=== PATIENT | female | born 1945 | race Caucasian/White ===

== ENCOUNTER 2021-04-23 18:32 | Inpatient (IN) | payer MEDICARE, SELFPAY ==
[2021-04-23 18:05] VITALS: BP 133/60; PULSE 71; RESP 18; TEMP 37; O2SAT 100
[2021-04-23 20:00] VITALS: PULSE 77; O2SAT 100
--- NOTE | 2021-04-23 20:40 | PM.IMHP ---
H&P: HPI History of Present Illness Date/Time: 04/23/21 20:40 this is a 76-year-old female patient who has a past history of anemia. The patient states that she has a associate professor of history at [facility] that follows her. The patient has a history of peripheral vascular disease, internal carotid artery stenosis, morbid obesity, diastolic congestive heart failure, chronic hypoxic respiratory failure on home oxygen at 3 L per nasal cannula, severe pulmonary hypertension, coronary artery disease, diabetes type 2, atrial fibrillation on apixaban, and she had a TAVR last month. The patient came to the emergency room at [facility] with complaints of having pain all over. She stated that she has some lower abdominal pain. The patient was unable to go to [facility] if she had been placed on a waiting list. The patient had a CT of her abdomen and pelvis without contrast at home [facility] that read acute segmental colitis of the right he me colon. Colonoscopy follow-up is warranted to exclude potential for underlying malignancy. Mild interstitial edema with associated small bilateral pleural effusions. No acute airspace consolidation. Colonic diverticulitis. Anemia as evidenced by low attenuation of the intracardiac blood pole. 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 Postsurgical changes of cholecystectomy. Severe atheroma ptosis vascular calcifications. Vascular pain see not assessed on this non contrasted study. 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 On 04/20/2021 the ED physician spoke with the hospitalist at home or hospital and explained that they had no GI availability. They recommend transfer with GI availability. On that same day her guaiac stool was positive and it was dark. Patient was also found to have an elevated troponin most likely from her type 2 demand related to anemia. Patient stated that she had a total of 3 units of packed red blood cells while she was at [facility]. Her hemoglobin was 6.7. The patient had been on clear liquid diets. When the patient came to [facility] she was given a heart healthy diet and tolerated it well. The ED physician at home or hospital Dr. Lee stated that he called Dr. Balderrama who agreed to consult on the patient. According to the notes it looks like [facility] had been called and there were no beds available. The patient was transferred to our facility for GI consultation. The patient was placed in IMU due to her elevated troponins. Patient is being admitted to inpatient on the date of service of 04/23/2021 Chief Complaint: Abdominal pain Review of Systems Review of Systems: All systems reviewed & are unremarkable except as noted in HPI and below Constitutional: Constitutional: Reports as per HPI and Reports no additional constitutional complaints Eyes: Eyes: Reports as per HPI and Reports no additional eye complaints ENT: Reports system reviewed and no additional complaints, except as documented and Reports Normal hearing present Cardiovascular: Cardiovascular: Reports no additional cardiovascular complaints Respiratory: Respiratory: Reports no additional respiratory complaints and Reports no additional respiratory complaints Gastrointestinal: Gastrointestinal: Reports as per HPI and Reports no additional gastrointestinal complaints Musculoskeletal: Musculoskeletal: Reports no additional musculoskeletal complaints Integumentary/Breasts: Skin/Breast: Reports system reviewed and no additional complaints, except as docu and Reports as per HPI Neurologic: Reports system reviewed and no additional complaints, except as documented, Reports as per HPI and Reports Normal hearing present Psychiatric: Psychiatric: Reports no additional psychiatric complaints and Reports as per HPI Endocrine: Endocrine: Reports no additional endocrine complaints
[2021-04-23 20:41] VITALS: O2SAT 100
--- NOTE | 2021-04-23 20:49 | ECG_ITS ---
Measurements Intervals [place] Rate: 74 P: 75 [place]: 210 QRS: 26 QRSD: 99 T: 45 QT: 427 QTc: 477 Interpretive Statements SINUS RHYTHM WITH FIRST DEGREE AV BLOCK BASELINE ARTIFACT- I, II, III, AVR, AVL, AVF ABNORMAL ECG Electronically Signed On 04-24-2021 8:44:10 CDT by Gera Parsons D.O.
[2021-04-23 21:27] LABS: Hematocrit 36.6 % (37.0-47.0); Hemoglobin 11.1 g/dL (12.0-15.0)
[2021-04-23 21:37] LABS: Lactic Acid Reflex 1.4 mmol/L (0.7-2.1)
[2021-04-23 21:38] LABS: Glucose Point of Care 252 mg/dl (65-105)
[2021-04-23 21:40] LABS: Magnesium 1.7 mg/dL (1.6-2.3)
[2021-04-23 21:41] LABS: Anion Gap 7 mmol/L (8-16); Blood Urea Nitrogen 10 mg/dL (7-17); Calcium 9.5 mg/dL (8.4-10.2); Carbon Dioxide 35 mmol/L (22-30); Chloride 95 mmol/L (98-107); Estimated Glomerular Filt Rate 54; Glucose 244 mg/dL (65-110); Potassium 4.7 mmol/L (3.4-5.0); Sodium 137 mmol/L (137-145)
[2021-04-23 21:48] LABS: Hemoglobin A1C 5.7 % (<5.7)
[2021-04-23 21:57] LABS: Troponin I 0.157 ng/mL (0.000-0.034)
[2021-04-23 22:00] VITALS: PULSE 79
[2021-04-23 22:31] VITALS: BMI 37.3
[2021-04-23 23:08] LABS: IFOB Positive Control Positive; Immunochemical Fecal Occult Bl Positive (N)
[2021-04-24] VITALS (13 sets, daily range): BP systolic 106–165; BP diastolic 48–68; PULSE 70–94; RESP 16–20; TEMP 36.2–37.1; O2SAT 88–100
[2021-04-24] MEDS: traZODone HCL 50 MG TABLET 150 MG PO ×2 (00:03→22:59)
[2021-04-24] MEDS: rOPINIRole HCL 1 MG TABLET PO ×2 (00:03→23:00)
[2021-04-24] MEDS: PANTOPRAZOLE SODIUM IV 40 MG VIAL IV PUSH ×3 (00:03→22:58)
[2021-04-24] MEDS: ALPRAZolam (*CRX) 0.25 MG TABLET PO (00:03)
[2021-04-24] MEDS: ZOLPIDEM TARTRATE (*CRX) 5 MG TABLET PO ×2 (00:03→23:14)
[2021-04-24 01:34] LABS: Add Urine Microscopic? YES; Appearance Urine Cloudy (Clear); Bacteria Urine Trace /hpf; Bilirubin Urine Negative (Negative); Blood Urine Negative (Negative); Color Urine Amber (Yellow); Glucose Urine UA Negative (Negative); Ketones Urine Negative (Negative); Leukocyte Esterase Ur Negative LEU/UL (NEGATIVE); Mucus Urine Rare /lpf; Nitrate Urine Negative (Negative); Protein Urine 2+ mg/dL (Negative); Specific Grav Ur 1.021 (1.001-1.035); Squamous Epithelial Cell Urine Moderate /hpf (Few)
[2021-04-24] MEDS: oxyCODONE/ACETAMINOPHEN (*CRX) 5-325 MG TABLET 1 TABLET PO (01:51)
[2021-04-24 01:57] LABS: Troponin I 0.133 ng/mL (0.000-0.034)
--- NOTE | 2021-04-24 02:06 | ADMIMU ---
This patient, Di Driver, was admitted to IMU status, and placed in IMU Room 200-01 04/23/21 at 1830. Patient oriented to hospital policies and general routines including ID bracelet, bed and alarms, visiting hours, pain management, procedures, bathroom and other care routines, personal items, smoking policy, room service/diet, and visiting hours. Information on how to activate the Rapid Response Team has been discussed. Patient/Family are encouraged to report perceived risks to care and to ask questions if they do not understand what they are told or what they should do.
[2021-04-24 03:30] LABS: Hematocrit 30.9 % (37.0-47.0); Hemoglobin 9.6 g/dL (12.0-15.0)
[2021-04-24 03:41] LABS: Anion Gap 3 mmol/L (8-16); Blood Urea Nitrogen 13 mg/dL (7-17); Calcium 8.5 mg/dL (8.4-10.2); Carbon Dioxide 33 mmol/L (22-30); Chloride 97 mmol/L (98-107); Estimated CRCL calculation 52 ml/min; Estimated Glomerular Filt Rate > 60; Glucose 150 mg/dL (65-110); Sodium 133 mmol/L (137-145)
[2021-04-24 04:01] LABS: Troponin I 0.131 ng/mL (0.000-0.034)
[2021-04-24] MEDS: amLODIPine BESYLATE 5 MG TABLET PO (08:20)
[2021-04-24] MEDS: FERROUS SULFATE 324 MG TABLET PO (08:21)
[2021-04-24] MEDS: FUROSEMIDE 40 MG TABLET PO (08:21)
[2021-04-24] MEDS: hydrALAZINE HCL 25 MG TABLET PO ×3 (08:21→16:07)
[2021-04-24] MEDS: SENNA/DOCUSATE SODIUM TABLET 2 TAB PO ×2 (08:21→16:07)
[2021-04-24] MEDS: allopurinoL 100 MG TABLET PO ×2 (08:21→16:07)
[2021-04-24] MEDS: DULoxetine HCL 30 MG CAPSULE.DR PO (08:21)
[2021-04-24] MEDS: AMIODARONE HCL 200 MG TABLET PO (08:21)
[2021-04-24] MEDS: GABAPENTIN 300 MG CAPSULE PO (08:21)
[2021-04-24 09:14] LABS: Hematocrit 30.8 % (37.0-47.0); Hemoglobin 9.5 g/dL (12.0-15.0)
[2021-04-24 09:16] LABS: Glucose Point of Care 126 mg/dl (65-105)
--- NOTE | 2021-04-24 10:43 | PM.IMPN ---
Progress Note: A&P Assessment and Plan (1) GI bleed: Code(s): K92.2 - Gastrointestinal hemorrhage, unspecified Status: Chronic Assessment and Plan: Patient is status post blood transfusion Stable Continue to monitor (2) Hypertension: Code(s): I10 - Essential (primary) hypertension Status: Chronic Assessment and Plan: Continue to monitor (3) Hyperlipidemia: Code(s): E78.5 - Hyperlipidemia, unspecified Status: Chronic Assessment and Plan: Continue with home medication. (4) DM2 (diabetes mellitus, type 2): Code(s): E11.9 - Type 2 diabetes mellitus without complications Status: Chronic Assessment and Plan: Continue to monitor Insulin sliding scale as needed (5) Depression: Code(s): F32.A - Depression, unspecified Status: Chronic Assessment and Plan: Continue with home medication. (6) Fibromyalgia: Code(s): M79.7 - Fibromyalgia Status: Chronic Assessment and Plan: Continue fentanyl patch (7) CAD (coronary artery disease): Code(s): I25.10 - Atherosclerotic heart disease of [place] coronary artery without angina pectoris Status: Chronic Assessment and Plan: Chest pain-free Continue to monitor (8) Severe aortic valve stenosis: Code(s): I35.0 - Nonrheumatic aortic (valve) stenosis Status: Chronic Assessment and Plan: Patient had a recent TAVR Continue to monitor (9) COPD (chronic obstructive pulmonary disease): Code(s): J44.9 - Chronic obstructive pulmonary disease, unspecified Status: Chronic Assessment and Plan: Continue with home medications. Not actively wheezing (10) Congestive heart failure: Code(s): I50.9 - Heart failure, unspecified Status: Chronic Assessment and Plan: Continue with home medications. Appears to be euvolemic Continue to monitor intake and output (11) Atrial fibrillation: Code(s): I48.91 - Unspecified atrial fibrillation Status: Chronic Assessment and Plan: Rate controlled (12) Anxiety: Code(s): F41.9 - Anxiety disorder, unspecified Status: Chronic Assessment and Plan: Continue with home medications. (13) Elevated troponin: Code(s): R77.8 - Other specified abnormalities of plasma proteins Status: Acute Assessment and Plan: Continue to monitor Will trend Subjective Date/time seen: 04/24/21 10:43 Review of Systems Review of Systems: All systems reviewed & are unremarkable except as noted in HPI and below Constitutional: Constitutional: Reports as per HPI and Reports no additional constitutional complaints Eyes: Eyes: Reports as per HPI and Reports no additional eye complaints ENT: Reports system reviewed and no additional complaints, except as documented Cardiovascular: Cardiovascular: Reports no additional cardiovascular complaints Respiratory: Respiratory: Reports no additional respiratory complaints and Reports no additional respiratory complaints Gastrointestinal: Gastrointestinal: Reports as per HPI and Reports no additional gastrointestinal complaints Musculoskeletal: Musculoskeletal: Reports no additional musculoskeletal complaints Integumentary/Breasts: Skin/Breast: Reports system reviewed and no additional complaints, except as docu and Reports as per HPI Neurologic: Reports system reviewed and no additional complaints, except as documented, Reports as per HPI and Reports Sensory deficit (Neuro) (Left hand neuropathy, chronic) Psychiatric: Psychiatric: Reports no additional psychiatric complaints and Reports as per HPI Endocrine: Endocrine: Reports no additional endocrine complaints Hematologic/Lymphatic: Hematologic/Lymphatic: Reports no additional hematologic/lymphatic complaints Allergic/Immunologic: Allergic/Immunologic: Reports no additional allergic/immunologic complaints Exam Narrative: Patient is l
[2021-04-24 14:58] LABS: Hematocrit 31.1 % (37.0-47.0); Hemoglobin 9.8 g/dL (12.0-15.0)
--- NOTE | 2021-04-24 15:11 | WPDGICN ---
Assessment and Plan Assessment and plan (1) GI bleed: Code(s): K92.2 - Gastrointestinal hemorrhage, unspecified Status: Chronic Assessment and Plan: she has chronic anemia evaluated for many years by GI and also hematology (no records)- will try to obtain recent scopes and notes had occult blood in stools but no signs of overt gib, she is comfortable now protonix for now and trend h/h outside CT scan ? colitis but exam is benign and no diarrhea, patient also says that had colonoscopy not long ago eliquis probably also contributing with anemia (2) Occult blood in stools: Code(s): R19.5 - Other fecal abnormalities Status: Acute (3) Acute on chronic blood loss anemia: Code(s): D62 - Acute posthemorrhagic anemia Status: Acute Assessment and Plan: monitor for signs of bleeding she says that in the past required iv iron and blood transfusion will need follow-up with her distribution dispatcher (4) Severe aortic valve stenosis: Code(s): I35.0 - Nonrheumatic aortic (valve) stenosis Status: Chronic Assessment and Plan: s/p tavr 1 month ago (5) 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 HPI: Di Driver is a 76 year old female with multiple medical problems with history of peripheral vascular disease, internal carotid artery stenosis, morbid obesity, diastolic congestive heart failure, chronic hypoxic respiratory failure on home oxygen at 3 L per nasal cannula, severe pulmonary hypertension, coronary artery disease, diabetes type 2, atrial fibrillation on apixaban, and TAVR last month at [facility]. She says that also has chronic anemia for over 20 years, work up done at [facility] and [facility] with scopes multiple times and even SB capsule endoscopy with no definitive diagnosis, also seeing distribution dispatcher at [facility] and had BM biopsy per patient. She went to the emergency room at [facility] with mild lower abdominal pain but also was feeling more tired than usual and she has been waiting for bed to go to [facility] for almost [address]. [address] of her abdomen and pelvis read as possible acute segmental colitis of the right colon (patient says that most recent scopes maybe about 6 months ago or so). Further ER evaluation at [facility] showed positive occult blood and also found to be more anemic then received total of 3 units of packed red blood cells (hemoglobin was 6.7). She is hemodynamically stable and hb 9. Also had mild elevated troponin. Review of Systems Constitutional: Constitutional: Denies chills Eyes: Eyes: Denies blurry vision ENT: Reports Normal hearing present Cardiovascular: Cardiovascular: Denies chest pain Respiratory: Respiratory: Denies cough Gastrointestinal: Gastrointestinal: Reports abdominal pain and Denies melena Genitourinary: Genitourinary: Denies hematuria Musculoskeletal: Musculoskeletal: Denies neck pain Integumentary/Breasts: Skin/Breast: Denies dry skin Neurologic: Denies headache(s) Psychiatric: Psychiatric: Reports no additional psychiatric complaints PMFSH Past Medical History Medical History (Updated 04/24/21 @ 15:22 by Graeme Clark MD) Abdominal pain Acute on chronic blood loss anemia Anemia Anxiety Arthritis Atrial fibrillati
--- NOTE | 2021-04-24 15:43 | PC.NURSE ---
This patient, Di Driver, was transferred to [facility] on 04/24/21 at 1534. Personal belongings sent with patient. Report given to TAHIR Chaudhari. Appropriate documentation sent with patient.
[2021-04-24] MEDS: INSULIN ASPART (*BKC) 100 UNITS/ML SUB-Q (16:07)
[2021-04-24 16:32] LABS: Glucose Point of Care 178 mg/dl (65-105)
[2021-04-24 18:39] LABS: Glucose Point of Care 258 mg/dl (65-105)
--- NOTE | 2021-04-24 19:03 | PCAUD ---
consent signed for release for recorders from [facility] and [facility], for recent GI note and scopes.
[2021-04-25] VITALS (7 sets, daily range): BP systolic 135–148; BP diastolic 45–91; PULSE 75–86; RESP 18; TEMP 36.5–36.8; O2SAT 97–100
[2021-04-25 01:44] LABS: Glucose Point of Care 163 mg/dl (65-105)
[2021-04-25] MEDS: oxyCODONE/ACETAMINOPHEN (*CRX) 5-325 MG TABLET 1 TABLET PO (04:49)
[2021-04-25 06:35] LABS: Hematocrit 30.8 % (37.0-47.0); Hemoglobin 9.5 g/dL (12.0-15.0); Mean Corpuscular HGB Conc 30.8 g/dl (32-36); Mean Corpuscular Volume 90.9 fl (80-100); Mean Platelet Volume 9.9 fl (7.4-10.4); Platelet Count Result 242 k/mm3 (150-375); Red Blood Count 3.39 M/mm3 (4.2-5.4); Red Cell Distribution Width 15.9 % (11.5-14.5)
[2021-04-25 06:41] LABS: Alanine Aminotransferase 9 U/L (4-35); Alkaline Phosphatase 99 U/L (38-126); Anion Gap 7 mmol/L (8-16); Aspartate Amino Transferase 16 U/L (14-36); Bilirubin,Total 0.4 mg/dL (0.2-1.3); Blood Urea Nitrogen 17 mg/dL (7-17); Calcium 8.5 mg/dL (8.4-10.2); Carbon Dioxide 34 mmol/L (22-30); Chloride 97 mmol/L (98-107); Estimated CRCL calculation 40 ml/min; Estimated Glomerular Filt Rate 44; Glucose 173 mg/dL (65-110); Potassium 4.2 mmol/L (3.4-5.0); Sodium 138 mmol/L (137-145)
[2021-04-25 08:11] LABS: Glucose Point of Care 137 mg/dl (65-105)
[2021-04-25] MEDS: SENNA/DOCUSATE SODIUM TABLET 2 TAB PO ×2 (08:16→16:28)
[2021-04-25] MEDS: allopurinoL 100 MG TABLET PO ×2 (08:16→16:28)
[2021-04-25] MEDS: FUROSEMIDE 40 MG TABLET PO (08:16)
[2021-04-25] MEDS: DULoxetine HCL 30 MG CAPSULE.DR PO (08:16)
[2021-04-25] MEDS: FERROUS SULFATE 324 MG TABLET PO (08:16)
[2021-04-25] MEDS: GABAPENTIN 300 MG CAPSULE PO ×2 (08:16→20:54)
[2021-04-25] MEDS: AMIODARONE HCL 200 MG TABLET PO (08:16)
[2021-04-25] MEDS: PANTOPRAZOLE SODIUM IV 40 MG VIAL IV PUSH ×2 (08:17→20:54)
[2021-04-25] MEDS: amLODIPine BESYLATE 5 MG TABLET PO (08:17)
[2021-04-25] MEDS: hydrALAZINE HCL 25 MG TABLET PO ×3 (08:17→16:28)
--- NOTE | 2021-04-25 08:56 | WPDGIPROGNO ---
Progress Note: A&P Assessment and Plan (1) Abdominal pain: Code(s): R10.9 - Unspecified abdominal pain Status: Acute Assessment and Plan: stable, reviewed CT scan from other hospital- right colitis and recommending assess with colonoscopy to exclude malignancy she is willing to have colonoscopy tomorrow (2) Abnormal CT scan, colon: Code(s): R93.3 - Abnormal findings on diagnostic imaging of other parts of digestive tract Status: Acute Assessment and Plan: will assess with colonoscopy (3) Acute on chronic blood loss anemia: Code(s): D62 - Acute posthemorrhagic anemia Status: Acute Assessment and Plan: long standing anemia with previous scopes and hematology evaluation her blood thinner on hold had + FBOT but no overt gib however received blood transfusion again will do egd and colonoscopy tomorrow (4) Occult blood in stools: Code(s): R19.5 - Other fecal abnormalities Status: Acute (5) 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: Code(s): Z92.29 - Personal history of other drug therapy Status: Acute (6) DM2 (diabetes mellitus, type 2): Code(s): E11.9 - Type 2 diabetes mellitus without complications Status: Chronic (7) CAD (coronary artery disease): Code(s): I25.10 - Atherosclerotic heart disease of [place] coronary artery without angina pectoris Status: Chronic Subjective Date/time seen: 04/25/21 08:56 Interval history: some abdominal discomfort, no signs of gib Review of Systems Review of Systems: All systems reviewed & are unremarkable except as noted in HPI and below Exam Const: General: comfortable and no acute distress HENMT: General nose exam: Normal nares present Eyes: Sclera: sclerae normal Neck: Neck: supple Resp: Auscultation: clear to auscultation bilaterally Cardio: Rate: regular rate GI: GI Palp: Yes Soft to palpation, Yes Tenderness to palpation present (GI) (mild ttp in right upper abdomen, no rebound) and No Guarding due to palpation present (GI) Auscultation: normal bowel sounds Skin: General skin exam: no rashes or lesions noted Neuro: Speech: normal speech Extrem: General: normal to inspection Psych: Mental Status: mental status grossly normal Objective Data Vital Signs Vital Signs: Vital Signs - 24 hr 04/24/21 10:00 04/24/21 12:00 04/24/21 20:00 Temperature 97.6 F Pulse Rate 74 76 83 Respiratory Rate 16 18 Blood Pressure 106/48 L Pulse Oximetry 99 97 04/24/21 22:00 04/25/21 06:00 04/25/21 08:16 Temperature 97.9 F 98.3 F Pulse Rate 83 76 76 Respiratory Rate 18 18 Blood Pressure 124/57 L 148/45 H Pulse Oximetry 97 97 Intake/Output Intake/Output: Intake & Output 04/22/21 04/23/21 04/24/21 04/25/21 23:59 23:59 23:59 23:59 Intake Total 902 550 Output Total 1050 1050 Balance -148 -500 Meds/Results Medications: Active Medications Generic Name Dose Route Start Last Admin Trade Name Freq PRN Reason Stop Dose Admin Albuterol 2.5 mg 04/23/21 22:20 Albuterol Sulfate Neb 2.5 Mg/3 Ml Inh INHALATION DAILY PRN Shortness Of Breath Allopurinol 100 mg 04/24/21 08:00 04/25/21 08:16 Allopurinol 100 Mg Tablet PO 100 mg BIDWM BAYLEE Administration Alprazolam 0.25 mg 04/23/21 22:20 04/24/21 00:03 Alprazolam (*Crx) 0.25 Mg Tablet PO 0.25 mg BID PRN Administration Anxiety Amiodarone HCl 200 mg 04/24/21 08:00 04/25/21 08:16 Amiodarone Hcl 200 Mg Tablet PO 200 mg DAILY@0800 BAYLEE Administration Amlodipine Besylate 5 mg 04/24/21 09:00 04/25/21 08:17 Amlodipine Besylate 5 Mg Tablet PO 5 mg DAILY BAYLEE Administration Bisacodyl 20 mg 04/25/21 17:00 Bisacodyl 5 Mg Tablet Ec PO 04/25/21 17:01 ONCE ONE Dextrose 12.5 gm 04/23/21 20:39 Dextrose 50% 25 Gm/50 Ml Syringe IV PUSH PRN PRN Hypoglycemia Protocol Duloxetine HCl 30 mg 04/24/21 09:00 04/25/21 08:16
--- NOTE | 2021-04-25 09:49 | PCAUD ---
Titrating pt to Ra this shift, stable at this time. Called pharmacy, pt stated takes gabapentin at [facility], pharmacist changed to [facility] per pt request.
--- NOTE | 2021-04-25 10:08 | PCAUD ---
consent signed for colonscopy and upper endoscopy with MD Clark this morning, procedure scheduled for Monday per pt report.
[2021-04-25 11:41] LABS: Glucose Point of Care 209 mg/dl (65-105)
[2021-04-25] MEDS: INSULIN ASPART (*BKC) 100 UNITS/ML SUB-Q (12:32)
--- NOTE | 2021-04-25 13:09 | PCAUD ---
Pt transfers from IMU, report received from Audra HARO, assessment complete, pt has dentures full set.
[2021-04-25 16:27] LABS: Glucose Point of Care 183 mg/dl (65-105)
[2021-04-25] MEDS: polyethylene glycoL 3350 238 GM BOTTLE PO (16:27)
[2021-04-25] MEDS: BISACODYL 5 MG TABLET EC 20 MG PO (16:30)
--- NOTE | 2021-04-25 18:50 | PCAUD ---
This patient, Di Driver, was transfered to [facility] Room 321-01 04/24/21 at 1404. Patient/family oriented to hospital policies and general routines including ID bracelet, bed and alarms, visiting hours, pain management, procedures, bathroom and other care routines, personal items, smoking policy, room service/diet, and visiting hours. Information on how to activate the Rapid Response Team has been discussed. Patient/Family are encouraged to report perceived risks to care and to ask questions if they do not understand what they are told or what they should do.
[2021-04-25] MEDS: ZOLPIDEM TARTRATE (*CRX) 5 MG TABLET PO (20:54)
[2021-04-25] MEDS: rOPINIRole HCL 1 MG TABLET PO (20:54)
[2021-04-25] MEDS: traZODone HCL 50 MG TABLET 150 MG PO (20:54)
[2021-04-26] VITALS (8 sets, daily range): BP systolic 98–139; BP diastolic 48–65; PULSE 65–80; RESP 13–20; TEMP 36.5–37.4; O2SAT 95–100; BMI 32.0
[2021-04-26] MEDS: fentaNYL (*CRX) 75 MCG PATCH TRANSDERM (01:43)
[2021-04-26 02:02] LABS: Glucose Point of Care 211 mg/dl (65-105)
[2021-04-26] MEDS: MAGNESIUM CITRATE 300 ML BTL PO (05:08)
[2021-04-26 08:20] LABS: Glucose Point of Care 128 mg/dl (65-105)
[2021-04-26] MEDS: PANTOPRAZOLE SODIUM IV 40 MG VIAL IV PUSH (09:12)
[2021-04-26 12:01] LABS: Glucose Point of Care 139 mg/dl (65-105)
--- NOTE | 2021-04-26 13:39 | PM.IMPN ---
Progress Note: A&P Assessment and Plan (1) GI bleed: Code(s): K92.2 - Gastrointestinal hemorrhage, unspecified Status: Chronic Assessment and Plan: Status post colonoscopy Findings consistent with colitis Follow GI recommendations. Patient is status post blood transfusion Stable Continue to monitor (2) Hypertension: Code(s): I10 - Essential (primary) hypertension Status: Chronic Assessment and Plan: Continue to monitor (3) Hyperlipidemia: Code(s): E78.5 - Hyperlipidemia, unspecified Status: Chronic Assessment and Plan: Continue with home medication. (4) DM2 (diabetes mellitus, type 2): Code(s): E11.9 - Type 2 diabetes mellitus without complications Status: Chronic Assessment and Plan: Continue to monitor Insulin sliding scale as needed (5) Depression: Code(s): F32.A - Depression, unspecified Status: Chronic Assessment and Plan: Continue with home medication. (6) Fibromyalgia: Code(s): M79.7 - Fibromyalgia Status: Chronic Assessment and Plan: Continue fentanyl patch (7) CAD (coronary artery disease): Code(s): I25.10 - Atherosclerotic heart disease of [place] coronary artery without angina pectoris Status: Chronic Assessment and Plan: Chest pain-free Continue to monitor (8) Severe aortic valve stenosis: Code(s): I35.0 - Nonrheumatic aortic (valve) stenosis Status: Chronic Assessment and Plan: Patient had a recent TAVR Continue to monitor (9) COPD (chronic obstructive pulmonary disease): Code(s): J44.9 - Chronic obstructive pulmonary disease, unspecified Status: Chronic Assessment and Plan: Continue with home medications. Not actively wheezing (10) Congestive heart failure: Code(s): I50.9 - Heart failure, unspecified Status: Chronic Assessment and Plan: Continue with home medications. Appears to be euvolemic Continue to monitor intake and output (11) Atrial fibrillation: Code(s): I48.91 - Unspecified atrial fibrillation Status: Chronic Assessment and Plan: Rate controlled (12) Anxiety: Code(s): F41.9 - Anxiety disorder, unspecified Status: Chronic Assessment and Plan: Continue with home medications. (13) Elevated troponin: Code(s): R77.8 - Other specified abnormalities of plasma proteins Status: Acute Assessment and Plan: Continue to monitor Will trend Subjective Date/time seen: 10/25/21 13:39 Interval history: some abdominal discomfort, no signs of gib Review of Systems Review of Systems: All systems reviewed & are unremarkable except as noted in HPI and below Constitutional: Constitutional: Reports as per HPI and Reports no additional constitutional complaints Eyes: Eyes: Reports as per HPI and Reports no additional eye complaints ENT: Reports system reviewed and no additional complaints, except as documented Cardiovascular: Cardiovascular: Reports no additional cardiovascular complaints Respiratory: Respiratory: Reports no additional respiratory complaints and Reports no additional respiratory complaints Gastrointestinal: Gastrointestinal: Reports as per HPI and Reports no additional gastrointestinal complaints Musculoskeletal: Musculoskeletal: Reports no additional musculoskeletal complaints Integumentary/Breasts: Skin/Breast: Reports system reviewed and no additional complaints, except as docu and Reports as per HPI Neurologic: Reports system reviewed and no additional complaints, except as documented, Reports as per HPI and Reports Sensory deficit (Neuro) (Left hand neuropathy, chronic) Psychiatric: Psychiatric: Reports no additional psychiatric complaints and Reports as per HPI Endocrine: Endocrine: Reports no additional endocrine complaints Hematologic/Lymphatic: Hematologic/Lymphatic: Reports no additional hematologic/lymph
[2021-04-26] MEDS: GENTAMICIN 80MG/SOD CHL 50 ML 80 MG/50 ML BAG 100 MG IVPB (14:35)
[2021-04-26] MEDS: LACTATED RINGERS 1,000 ML 150 ML IV CONT (14:35)
--- NOTE | 2021-04-26 14:49 | WPDANESEPPF ---
Anes - Initial Pre Proc Eval Procedure: Operation Date: 04/26/21 15:00 Proposed Procedures p Esophagogastroduodenoscopy & Colonoscopy - Graeme Clark MD Date/Time: 04/26/21 14:49 Surgeon: Chani Reeder MD Pre Op Diagnosis: GI B Patient Data Age: 76 Gender: F Height: 1.63 m Weight: 84.6 kg Last Vital Signs Temp 97.7 F 04/26/21 14:36 Pulse 66 04/26/21 14:36 Resp 16 04/26/21 14:36 BP 139/57 L 04/26/21 14:36 Pulse Ox 95 04/26/21 09:23 Allergies Allergy/AdvReac Type Severity Reaction Status Date / Time cephalexin [From Keflex] Allergy Itching Verified 04/23/21 20:37 sertraline [From Zoloft] Allergy Itching Verified 04/23/21 20:37 Home Medications Medication Instructions Recorded Confirmed Type albuterol sulfate 2.5 mg CONTINUOUS NEBULIZATION 04/23/21 04/23/21 History DAILY PRN allopurinol 100 mg PO BID 04/23/21 04/23/21 History alprazolam 0.25 mg PO BID PRN 04/23/21 04/23/21 History amiodarone 200 mg PO DAILY 04/23/21 04/23/21 History amlodipine 5 mg PO DAILY 04/23/21 04/23/21 History apixaban [Eliquis] 5 mg PO BID 04/23/21 04/23/21 History blood-glucose sensor [Dexcom G6 04/23/21 04/23/21 History Sensor] blood-glucose transmitter [Dexcom 04/23/21 04/23/21 History G6 Transmitter] duloxetine 30 mg PO DAILY 04/23/21 04/23/21 History famotidine 40 mg PO BID 04/23/21 04/23/21 History fentanyl 1 patch TRANSDERMAL Q3D 04/23/21 04/23/21 History ferrous sulfate [FeroSul] 325 mg PO DAILY 04/23/21 04/23/21 History furosemide 40 mg PO DAILY 04/23/21 04/23/21 History gabapentin 300 mg PO DAILY 04/23/21 04/23/21 History hydralazine 25 mg PO TID 04/23/21 04/23/21 History insulin aspart U-100 [Novolog 60 unit SUBCUT USEASDIRECTD 04/23/21 04/23/21 History U-100 Insulin aspart] naloxone [Narcan] 4 mg INTRANASAL PRN PRN 04/23/21 04/23/21 History oxycodone-acetaminophen 1 tablet PO Q4H PRN 04/23/21 04/23/21 History ropinirole 1 mg PO HS 04/23/21 04/23/21 History sennosides-docusate sodium 2 tablet PO BID 04/23/21 04/23/21 History [Senna-S] trazodone 150 mg PO HS 04/23/21 04/23/21 History zolpidem 5 mg PO HS 04/23/21 04/23/21 History Laboratory Tests 04/25/21 04/25/21 04/26/21 16:22 21:02 08:08 POC Capillary Glucose 183 mg/dl H mg/dl 211 mg/dl H mg/dl 128 mg/dl H mg/dl (65-105) (65-105) (65-105) 04/26/21 11:46 POC Capillary Glucose 139 mg/dl H mg/dl (65-105) Patient hx anesthesia problems: none Family hx anesthesia problems: none Results Review: All pre-operative results and documents have been reviewed as part of the pre-operative evaluation. 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 Hyperlipidemia Hypertension Myocardial infarction Occult blood in stools Pulmonary emboli Severe aortic valve stenosis Surgical History Surgical History (Updated 04/23/21 @ 21:02 by Crissy Cormier NP) H/O bilateral cataract extraction H/O colonoscopy with polypectomy H/O heart artery stent 2006 H/O total hip arthroplasty H/O: hysterectomy History of back surgery History of removal of Port-a-Cath History of surgery on arm History of tonsillectomy Hx of cholecystectomy S/P rotator cuff repair Family History Family History (Updated 04/24/21 @ 00:45 by Elli Mauircio RN) Father War injury d/t direct or indirect pressure or air blast of explosion Causing during World War 2 Mother Pulmonar
[2021-04-26 14:50] LABS: Glucose Point of Care 147 mg/dl (65-105)
[2021-04-26] MEDS: AMPICILLIN 2 GM/NS 100 ML 2 GM/100 ML BAG IVPB (15:08)
--- NOTE | 2021-04-26 16:48 | SUR.OPER ---
EGD ENDED AND COLONOSCOPY STARTED 1644
[2021-04-26 17:59] LABS: Glucose Point of Care 127 mg/dl (65-105)
[2021-04-26] MEDS: SENNA/DOCUSATE SODIUM TABLET 2 TAB PO (18:05)
[2021-04-26] MEDS: hydrALAZINE HCL 25 MG TABLET PO (18:05)
[2021-04-26] MEDS: allopurinoL 100 MG TABLET PO (18:05)
[2021-04-26] MEDS: ZOLPIDEM TARTRATE (*CRX) 5 MG TABLET PO (21:18)
[2021-04-26] MEDS: GABAPENTIN 300 MG CAPSULE PO (21:18)
[2021-04-26] MEDS: traZODone HCL 50 MG TABLET 150 MG PO (21:18)
[2021-04-26] MEDS: rOPINIRole HCL 1 MG TABLET PO (21:18)
[2021-04-26 21:25] LABS: Glucose Point of Care 296 mg/dl (65-105)
[2021-04-27 07:50] LABS: Glucose Point of Care 144 mg/dl (65-105)
[2021-04-27 08:33] VITALS: PULSE 73
[2021-04-27] MEDS: AMIODARONE HCL 200 MG TABLET PO (08:33)
[2021-04-27] MEDS: hydrALAZINE HCL 25 MG TABLET PO ×3 (08:33→18:38)
[2021-04-27] MEDS: SENNA/DOCUSATE SODIUM TABLET 2 TAB PO (08:34)
[2021-04-27] MEDS: amLODIPine BESYLATE 5 MG TABLET PO (08:34)
[2021-04-27] MEDS: FUROSEMIDE 40 MG TABLET PO (08:34)
[2021-04-27] MEDS: allopurinoL 100 MG TABLET PO ×2 (08:35→18:37)
[2021-04-27] MEDS: DULoxetine HCL 30 MG CAPSULE.DR PO (08:35)
[2021-04-27] MEDS: FERROUS SULFATE 324 MG TABLET PO (08:35)
[2021-04-27] MEDS: PANTOPRAZOLE 40 MG TABLET PO (08:35)
--- NOTE | 2021-04-27 10:10 | PM.IMPN ---
Progress Note: A&P Assessment and Plan (1) GI bleed: Code(s): K92.2 - Gastrointestinal hemorrhage, unspecified Status: Chronic Assessment and Plan: Status post colonoscopy Findings consistent with colitis Follow GI recommendations. Patient is status post blood transfusion Stable Continue to monitor (2) Hypertension: Code(s): I10 - Essential (primary) hypertension Status: Chronic Assessment and Plan: Continue to monitor (3) Hyperlipidemia: Code(s): E78.5 - Hyperlipidemia, unspecified Status: Chronic Assessment and Plan: Continue with home medication. (4) DM2 (diabetes mellitus, type 2): Code(s): E11.9 - Type 2 diabetes mellitus without complications Status: Chronic Assessment and Plan: Continue to monitor Insulin sliding scale as needed (5) Depression: Code(s): F32.A - Depression, unspecified Status: Chronic Assessment and Plan: Continue with home medication. (6) Fibromyalgia: Code(s): M79.7 - Fibromyalgia Status: Chronic Assessment and Plan: Continue fentanyl patch (7) CAD (coronary artery disease): Code(s): I25.10 - Atherosclerotic heart disease of [place] coronary artery without angina pectoris Status: Chronic Assessment and Plan: Chest pain-free Continue to monitor (8) Severe aortic valve stenosis: Code(s): I35.0 - Nonrheumatic aortic (valve) stenosis Status: Chronic Assessment and Plan: Patient had a recent TAVR Continue to monitor (9) COPD (chronic obstructive pulmonary disease): Code(s): J44.9 - Chronic obstructive pulmonary disease, unspecified Status: Chronic Assessment and Plan: Continue with home medications. Not actively wheezing (10) Congestive heart failure: Code(s): I50.9 - Heart failure, unspecified Status: Chronic Assessment and Plan: Continue with home medications. Appears to be euvolemic Continue to monitor intake and output (11) Atrial fibrillation: Code(s): I48.91 - Unspecified atrial fibrillation Status: Chronic Assessment and Plan: Rate controlled (12) Anxiety: Code(s): F41.9 - Anxiety disorder, unspecified Status: Chronic Assessment and Plan: Continue with home medications. (13) Elevated troponin: Code(s): R77.8 - Other specified abnormalities of plasma proteins Status: Acute Assessment and Plan: Continue to monitor Will trend Additional Plan 76yo lady with PVD carotid stenosis HFpEF pulm htn AFib on apixiban s/p TAVR last month presenting with generalized pain. Found to be anemic at outside facility to hgb 6.7. Received 3 units since. EGD showing only mild gastritis - not enough to explain bleeding symptoms. Colonoscopy showing rt sided colitis, possibly ischemic colitis. Avoid NSAIDs per GI. Rpt colonoscopy in 1 year. Colitis, Gastritis, anemia: continue po protonix. s/p EGD & colonoscopy 04/26; pending biopsy from procedure. GI on board, appreciate additional recommendations. Continue Fe supplement. Chronic Resp Failure: 3L baseline, which is what she is requiring now. Related to severe pulmonary hypertension and HFpEF. Continue lasix & hydral. AFib, s/p TAVR last month: AC held for anemia. Continue Amio for rate & rhythm control. Generalized pain: severe, started on fentanyl patch on admission. Now states it was mainly localized to RLQ, and has subsided since procedure. Will try to wean off pain meds as tolerated. Anticipate d/c early tomorrow if patient comfortable & GI ok. Time Spent With Patient Time with patient: less than 15 minutes Subjective Date/time seen: 04/27/21 10:10 no acute complaints resting comfortably in bed Review of Systems Review of Systems: All systems reviewed & are unremarkable except as noted in HPI and below Exam Const: General: no acute distress Neck: Neck: no JVD Resp: Effort & In
[2021-04-27 10:49] LABS: Basophils Percent Auto 0.4 % (0.2-1.2); Eosinophils Absolute Auto 0.2 K/mm3 (0-0.3); Eosinophils Percent Auto 2.8 % (0-4.4); Hematocrit 28.1 % (37.0-47.0); Hemoglobin 8.6 g/dL (12.0-15.0); Immature Granulocyte Absolute 0.02 K/mm3 (0.00-0.031); Immature Granulocyte Percent A 0.4 % (0-0.5); Lymphocytes Absolute Auto 0.64 K/mm3 (0.9-3.2); Lymphocytes Percent Auto 11.8 % (18.3-44.2); Mean Corpuscular HGB Conc 30.6 g/dl (32-36); Mean Corpuscular Volume 94.6 fl (80-100); Mean Platelet Volume 9.5 fl (7.4-10.4); Monocytes Absolute Auto 0.7 K/mm3 (0.1-0.6); Monocytes Percent Auto 12.2 % (2.6-8.5); Neutrophils Absolute Auto 3.9 K/mm3 (1.3-6.7); Neutrophils Percent Auto 72.4 % (45.5-73.1); Platelet Count Result 204 k/mm3 (150-375); Red Blood Count 2.97 M/mm3 (4.2-5.4); Red Cell Distribution Width 15.9 % (11.5-14.5); White Blood Count 5.4 K/mm3 (4.5-10.0)
[2021-04-27 11:02] LABS: Alanine Aminotransferase 9 U/L (4-35); Alkaline Phosphatase 84 U/L (38-126); Anion Gap 0 mmol/L (8-16); Aspartate Amino Transferase 21 U/L (14-36); Bilirubin,Total 0.2 mg/dL (0.2-1.3); Blood Urea Nitrogen 17 mg/dL (7-17); Calcium 8.5 mg/dL (8.4-10.2); Carbon Dioxide 36 mmol/L (22-30); Chloride 97 mmol/L (98-107); Estimated CRCL calculation 40 ml/min; Estimated Glomerular Filt Rate 48; Glucose 272 mg/dL (65-110); Potassium 4.3 mmol/L (3.4-5.0); Sodium 133 mmol/L (137-145)
[2021-04-27 11:58] LABS: Glucose Point of Care 245 mg/dl (65-105)
[2021-04-27] MEDS: INSULIN ASPART (*BKC) 100 UNITS/ML SUB-Q (12:19)
[2021-04-27 15:59] VITALS: BP 109/46; PULSE 76; RESP 16; TEMP 37.3; O2SAT 97
--- NOTE | 2021-04-27 16:14 | WPDGIPROGNO ---
Progress Note: A&P Assessment and Plan (1) Colitis: Code(s): K52.9 - Noninfective gastroenteritis and colitis, unspecified Status: Acute Assessment and Plan: right sided colitis, clinically doing better with only mild pain, no more bleeding will give flagyl for 7 days probably she can go home tomorrow with oral abx pending bx - ? ischemic colitis (2) Abdominal pain: Code(s): R10.9 - Unspecified abdominal pain Status: Acute Assessment and Plan: improved (3) Abnormal CT scan, colon: Code(s): R93.3 - Abnormal findings on diagnostic imaging of other parts of digestive tract Status: Acute Assessment and Plan: colonoscopy showed right sided colitis (4) Acute on chronic blood loss anemia: Code(s): D62 - Acute posthemorrhagic anemia Status: Acute Assessment and Plan: long standing anemia with previous scopes and hematology evaluation colitis can explain acute presentation (5) Occult blood in stools: Code(s): R19.5 - Other fecal abnormalities Status: Acute Assessment and Plan: from colitis- healing (6) 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 Today with mild pain in rlq, tolerating diet and doing well. No more blood in stools. Review of Systems Review of Systems: All systems reviewed & are unremarkable except as noted in HPI and below Exam Const: General: comfortable and no acute distress HENMT: General nose exam: Normal nares present Eyes: Sclera: sclerae normal Neck: Neck: supple Resp: Auscultation: clear to auscultation bilaterally Cardio: Rate: regular rate GI: GI Palp: Yes Soft to palpation, Yes Tenderness to palpation present (GI) (mild ttp in right lower abdomen, no rebound) and No Guarding due to palpation present (GI) Auscultation: normal bowel sounds Skin: General skin exam: no rashes or lesions noted Neuro: Speech: normal speech Extrem: General: normal to inspection Psych: Mental Status: mental status grossly normal Objective Data Vital Signs Vital Signs: Vital Signs - 24 hr 04/26/21 17:08 04/26/21 17:18 04/26/21 17:28 Temperature Pulse Rate 68 69 65 Respiratory Rate 15 13 20 Blood Pressure 98/50 L 115/58 L 137/65 Pulse Oximetry 98 99 100 04/26/21 20:00 04/26/21 23:56 04/27/21 08:33 Temperature 99.3 F Pulse Rate 70 73 Respiratory Rate 18 Blood Pressure 108/48 L Pulse Oximetry 100 99 04/27/21 15:59 Temperature 99.2 F Pulse Rate 76 Respiratory Rate 16 Blood Pressure 109/46 L Pulse Oximetry 97 Intake/Output Intake/Output: Intake & Output 04/24/21 04/25/21 04/26/21 04/27/21 23:59 23:59 23:59 23:59 Intake Total 902 2920 540 1230 Output Total 1050 1050 3000 1500 Balance -148 1870 -2460 -270 Meds/Results Medications: Active Medications Generic Name Dose Route Start Last Admin Trade Name Freq PRN Reason Stop Dose Admin Albuterol 2.5 mg 04/23/21 22:20 Albuterol Sulfate Neb 2.5 Mg/3 Ml Inh INHALATION DAILY PRN Shortness Of Breath Allopurinol 100 mg 04/24/21 08:00 04/27/21 08:35 Allopurinol 100 Mg Tablet PO 100 mg BIDWM BAYLEE Administration Alprazolam 0.25 mg 04/23/21 22:20 04/24/21 00:03 Alprazolam (*Crx) 0.25 Mg Tablet PO 0.25 mg BID PRN Administration Anxiety Amiodarone HCl 200 mg 04/24/21 08:00 04/27/21 08:33 Amiodarone Hcl 200 Mg Tablet PO 200 mg DAILY@0800 BAYLEE Administration Amlodipine Besylate 5 mg 04/24/21 09
[2021-04-27 16:56] LABS: Glucose Point of Care 139 mg/dl (65-105)
[2021-04-27 18:40] VITALS: BP 112/58; PULSE 78; RESP 18; TEMP 37.1; O2SAT 97
[2021-04-27] MEDS: metroNIDAZOLE 500 MG/ISO 100ML 500 MG/100 ML BAG 100 MG IVPB (21:55)
[2021-04-27] MEDS: traZODone HCL 50 MG TABLET 150 MG PO (21:55)
[2021-04-27] MEDS: ZOLPIDEM TARTRATE (*CRX) 5 MG TABLET PO (21:55)
[2021-04-27] MEDS: rOPINIRole HCL 1 MG TABLET PO (21:55)
[2021-04-27] MEDS: GABAPENTIN 300 MG CAPSULE PO (21:55)
[2021-04-27 22:00] VITALS: BP 102/63; PULSE 70; RESP 18; TEMP 36.6; O2SAT 99
[2021-04-27] MEDS: ALPRAZolam (*CRX) 0.25 MG TABLET PO (23:20)
[2021-04-27 23:30] LABS: Glucose Point of Care 160 mg/dl (65-105)
[2021-04-28] MEDS: metroNIDAZOLE 500 MG/ISO 100ML 500 MG/100 ML BAG 100 MG IVPB (05:16)
[2021-04-28 05:38] VITALS: BP 115/50; PULSE 61; RESP 20; TEMP 36.8; O2SAT 96
[2021-04-28 06:09] LABS: Basophils Percent Auto 0.4 % (0.2-1.2); Eosinophils Absolute Auto 0.1 K/mm3 (0-0.3); Hematocrit 27.8 % (37.0-47.0); Hemoglobin 8.5 g/dL (12.0-15.0); Immature Granulocyte Absolute 0.02 K/mm3 (0.00-0.031); Immature Granulocyte Percent A 0.4 % (0-0.5); Mean Corpuscular HGB Conc 30.6 g/dl (32-36); Mean Corpuscular Hemoglobin 28.5 pg (26-34); Mean Corpuscular Volume 93.3 fl (80-100); Mean Platelet Volume 10.2 fl (7.4-10.4); Monocytes Absolute Auto 0.7 K/mm3 (0.1-0.6); Monocytes Percent Auto 14.2 % (2.6-8.5); Neutrophils Absolute Auto 3.1 K/mm3 (1.3-6.7); Platelet Count Result 219 k/mm3 (150-375); Red Blood Count 2.98 M/mm3 (4.2-5.4); Red Cell Distribution Width 15.6 % (11.5-14.5); White Blood Count 4.7 K/mm3 (4.5-10.0)
[2021-04-28 06:24] LABS: Alanine Aminotransferase 8 U/L (4-35); Albumin Level 2.8 g/dL (3.5-5.1); Alkaline Phosphatase 94 U/L (38-126); Anion Gap 5 mmol/L (8-16); Aspartate Amino Transferase 16 U/L (14-36); Bilirubin,Total 0.2 mg/dL (0.2-1.3); Blood Urea Nitrogen 18 mg/dL (7-17); Calcium 8.8 mg/dL (8.4-10.2); Carbon Dioxide 34 mmol/L (22-30); Chloride 96 mmol/L (98-107); Estimated CRCL calculation 40 ml/min; Estimated Glomerular Filt Rate 48; Glucose 159 mg/dL (65-110); Phosphorus 4.8 mg/dL (2.5-4.5); Potassium 4.6 mmol/L (3.4-5.0); Sodium 135 mmol/L (137-145)
[2021-04-28 08:43] LABS: Glucose Point of Care 154 mg/dl (65-105)
[2021-04-28 10:13] VITALS: PULSE 68
[2021-04-28] MEDS: AMIODARONE HCL 200 MG TABLET PO (10:13)
[2021-04-28] MEDS: SENNA/DOCUSATE SODIUM TABLET 2 TAB PO (10:15)
[2021-04-28] MEDS: PANTOPRAZOLE 40 MG TABLET PO (10:15)
[2021-04-28] MEDS: FERROUS SULFATE 324 MG TABLET PO (10:15)
[2021-04-28] MEDS: FUROSEMIDE 40 MG TABLET PO (10:15)
[2021-04-28] MEDS: allopurinoL 100 MG TABLET PO (10:15)
[2021-04-28] MEDS: DULoxetine HCL 30 MG CAPSULE.DR PO (10:16)
[2021-04-28 12:12] LABS: Glucose Point of Care 182 mg/dl (65-105)
--- NOTE | 2021-04-28 13:07 | PM.DS ---
DS: Admitting Diagnosis Discharge Date April 28 Admitting Diagnosis Generalized pain DS: Discharge Diagnosis Discharge Diagnosis (1) Colitis: Code(s): K52.9 - Noninfective gastroenteritis and colitis, unspecified Status: Acute DS: Summary Hospital Course Reason for hospitalization: Anemia Hospital Course: Patient is a 76-year-old lady with peripheral vascular disease, carotid artery stenosis, diastolic heart failure, chronic respiratory failure with 3 L oxygen at baseline related to severe hypertension presenting to [facility] on 04/23 for generalized pain. Was found to have severe anemia to 6.7 hemoglobin. She was transfused 3 units, and thereafter felt a lot better. GI was consulted, an EGD was done, which showed only mild gastritis, however no findings to explain anemia conclusively. Colonoscopy identified moderate localized colitis in the ascending colon extending up to the hepatic flexure, approximately 10 cm in length. There were ulcerative changes, however no mucosal bleeding. Multiple biopsies were taken, as there is concern for ischemic colitis, and these are pending at time of discharge. There were some diverticula in the sigmoid colon, however not actively bleeding. Per GI recommendations, we will discharge with 7 days of Flagyl, and outpatient GI follow-up to discuss results of biopsies. Treatment of AFib, diabetes unchanged during admission. Close outpatient follow-up with primary caring GI. Time spent discussing smoking cessation with patient: 3 to 10 minutes Status at Discharge Functional status at discharge: uses cane/walker Time Spent with Patient Time attestation: Total time spent providing and/or coordinating discharge services: Time spent: Less than 30 minutes Exam Const: General: no acute distress Neck: Neck: no JVD Resp: Effort & Inspection: normal respiratory effort Auscultation: clear to auscultation bilaterally Cardio: Rate: regular rate Rhythm: regular rhythm GI: GI Palp: Yes Soft to palpation and No Tenderness to palpation present (GI) DS: Data Data Completed and Pending Pending studies at discharge: Pending at discharge 04/26/21 17:03 Surgical [PTH] Routine Labs on day of discharge: Labs from last 24 hours 04/28/21 04/28/21 04/28/21 12:04 08:28 05:50 WBC RBC Hgb Hct MCV MCH MCHC RDW Plt Count MPV Immature Gran % (Auto) Neut % (Auto) Lymph % (Auto) Clay % (Auto) Eos % (Auto) Baso % (Auto) Lymph # (Auto) Clay # (Auto) Eos # (Auto) Baso # (Auto) Abs Immat Gran (auto) Absolute Neuts (auto) Absolute Nucleated RBC Nucleated RBC % Sodium 135 L Potassium 4.6 Chloride 96 L Carbon Dioxide 34 H Anion Gap 5 L BUN 18 H Creatinine 1.10 H Estim Creat Clear Calc 40 Estimated GFR 48 L Glucose 159 H POC Capillary Glucose 182 H 154 H Calcium 8.8 Phosphorus 4.8 H Total Bilirubin 0.2 AST 16 ALT 8 Alkaline Phosphatase 94 Total Protein 5.0 L Albumin 2.8 L 04/28/21 04/27/21 04/27/21 05:50 23:25 16:43 WBC 4.7 RBC 2.98 L Hgb 8.5 L Hct 27.8 L MCV 93.3 MCH 28.5 MCHC 30.6 L RDW 15.6 H Plt Count 219 MPV 10.2 Immature Gran % (Auto) 0.4 Neut % (Auto) 67.0 Lymph % (Auto) 15.0 L Clay % (Auto) 14.2 H Eos % (Auto) 3.0 Baso % (Auto) 0.4 Lymph # (Auto) 0.70 L Clay # (Auto) 0.7 H Eos # (Auto) 0.1 Baso # (Auto) 0.0 Abs Immat Gran (auto) 0.02 Absolute Neuts (auto) 3.1 Absolute Nucleated RBC 0.0 Nucleated RBC % 0.0 Sodium Potassium Chloride Carbon Dioxide Anion Gap BUN Creatinine Estim Creat Clear Calc Estimated GFR Glucose POC Capillary Glucose 160 H 139 H Calcium Phosphorus Total Bilirubin AST ALT Alkaline Phosphatase Total Protein Albumin Discharge Plan Discharge Atte
[2021-04-28 14:00] VITALS: BP 103/44; PULSE 65; RESP 14; TEMP 37.1; O2SAT 95
--- NOTE | 2021-04-28 16:08 | WPDGIPROGNO ---
Progress Note: A&P Assessment and Plan (1) Colitis: Code(s): K52.9 - Noninfective gastroenteritis and colitis, unspecified Status: Acute Assessment and Plan: right sided colitis (pending bx), clinically doing better with only minimal pain, no more bleeding will complete few more days of oral flagyl and going home today pending bx - ? ischemic colitis (2) Abdominal pain: Code(s): R10.9 - Unspecified abdominal pain Status: Acute Assessment and Plan: improved (3) Abnormal CT scan, colon: Code(s): R93.3 - Abnormal findings on diagnostic imaging of other parts of digestive tract Status: Acute Assessment and Plan: colonoscopy showed right sided colitis (4) Acute on chronic blood loss anemia: Code(s): D62 - Acute posthemorrhagic anemia Status: Acute Assessment and Plan: long standing anemia with previous scopes and hematology evaluation colitis can explain acute presentation she will need follow-up with her doctors (5) Occult blood in stools: Code(s): R19.5 - Other fecal abnormalities Status: Acute Assessment and Plan: from colitis- healing (6) 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: Code(s): Z92.29 - Personal history of other drug therapy Status: Acute (7) DM2 (diabetes mellitus, type 2): Code(s): E11.9 - Type 2 diabetes mellitus without complications Status: Chronic (8) CAD (coronary artery disease): Code(s): I25.10 - Atherosclerotic heart disease of [place] coronary artery without angina pectoris Status: Chronic Subjective Date/time seen: 04/28/21 16:08 Interval history: she is doing well, going home today Review of Systems Review of Systems: All systems reviewed & are unremarkable except as noted in HPI and below Exam Const: General: comfortable and no acute distress HENMT: General nose exam: Normal nares present Eyes: Sclera: sclerae normal Neck: Neck: supple Resp: Auscultation: clear to auscultation bilaterally Cardio: Rate: regular rate GI: Inspection: non-distended GI Palp: Yes Soft to palpation and No Guarding due to palpation present (GI) Auscultation: normal bowel sounds Skin: General skin exam: no rashes or lesions noted Neuro: Speech: normal speech Extrem: General: normal to inspection Psych: Mental Status: mental status grossly normal Objective Data Vital Signs Vital Signs: Vital Signs - 24 hr 04/27/21 18:40 04/27/21 22:00 04/28/21 05:38 Temperature 98.7 F 97.8 F 98.2 F Pulse Rate 78 70 61 Respiratory Rate 18 18 20 Blood Pressure 112/58 L 102/63 115/50 L Pulse Oximetry 97 99 96 04/28/21 10:13 Temperature Pulse Rate 68 Respiratory Rate Blood Pressure Pulse Oximetry Intake/Output Intake/Output: Intake & Output 04/25/21 04/26/21 04/27/21 04/28/21 23:59 23:59 23:59 23:59 Intake Total 2920 540 1930 580 Output Total 1050 3000 1800 400 Balance 1870 -2460 130 180 Meds/Results Medications: Active Medications Generic Name Dose Route Start Last Admin Trade Name Freq PRN Reason Stop Dose Admin Albuterol 2.5 mg 04/23/21 22:20 Albuterol Sulfate Neb 2.5 Mg/3 Ml Inh INHALATION DAILY PRN Shortness Of Breath Allopurinol 100 mg 04/24/21 08:00 04/28/21 10:15 Allopurinol 100 Mg Tablet PO 100 mg BIDWM BAYLEE Administration Alprazolam 0.25 mg 04/23/21 22:20 04/27/21 23:20 Alprazolam (*Crx) 0.25 Mg Tablet PO 0.25 mg BID PRN Administration Anxiety Amiodarone HCl 200 mg 04/24/21 08:00 04/28/21 10:13 Amiodarone Hcl 200 Mg Tablet PO 200 mg DAILY@0800 BAYLEE Administration Amlodipine Besylate 5 mg 04/24/21 09:00 04/28/21 10:16 Amlodipine Besylate 5 Mg Tablet PO Not Given DAILY BAYLEE Dextrose 12.5 gm 04/23/21 20:39 Dextrose 50% 25 Gm/50 Ml Syringe IV PUSH PRN PRN Hypoglycemia Protocol Duloxetine HCl 30 mg 04/24/21 09:00 04/28/21 10:16 Duloxetine Hcl
[2021-04-28] MEDS: ALPRAZolam (*CRX) 0.25 MG TABLET PO (16:39)
--- NOTE | 2021-04-28 16:53 | PC.NURSE ---
While doing processing patient's discharge, this RN noticed that pt was going home on eliquis, despite having a GI bleed. GI MD aware (per GI progress note); I was not sure Dr. Madison was aware. Also, pt unable to afford eliquis so she is undecided to take it. Called Dr. Madison who came to bed side. Together we formulated a plan for pt to do one week of eliquis and to bridge over to coumadin with her primary care. stated he would make sure that it would happen tomorrow. Discharged pt with understanding of instructions.
--- NOTE | 2021-05-18 05:37 | PM.IMPN ---
Progress Note: A&P Assessment and Plan (1) Colitis: Code(s): K52.9 - Noninfective gastroenteritis and colitis, unspecified Status: Acute Additional Plan 76yo lady with PVD carotid stenosis HFpEF pulm htn AFib on apixiban s/p TAVR last month presenting with generalized pain. Found to be anemic at outside facility to hgb 6.7. Received 3 units since. EGD showing only mild gastritis - not enough to explain bleeding symptoms. Colonoscopy showing rt sided colitis, possibly ischemic colitis. Avoid NSAIDs per GI. Rpt colonoscopy in 1 year. Colitis, Gastritis, anemia: continue po protonix. s/p EGD & colonoscopy 04/26; pending biopsy from procedure. GI on board, appreciate additional recommendations. Continue Fe supplement. Chronic Resp Failure: 3L baseline, which is what she is requiring now. Related to severe pulmonary hypertension and HFpEF. Continue lasix & hydral. AFib, s/p TAVR last month: AC held for anemia. Continue Amio for rate & rhythm control. Generalized pain: severe, started on fentanyl patch on admission. Now states it was mainly localized to RLQ, and has subsided since procedure. Will try to wean off pain meds as tolerated. Anticipate d/c early tomorrow if patient comfortable & GI ok. Subjective Date/time seen: 05/18/21 05:37 PATIENT SEEN AND EXAMINED ON 04/25/2021 THIS IS A LATE ENTRY NOTE PATIENT COMPLAINING OF MILD ABDOMINAL PAIN. Review of Systems Review of Systems: All systems reviewed & are unremarkable except as noted in HPI and below Constitutional: Constitutional: Reports as per HPI and Reports no additional constitutional complaints Eyes: Eyes: Reports as per HPI and Reports no additional eye complaints ENT: Reports system reviewed and no additional complaints, except as documented Cardiovascular: Cardiovascular: Reports no additional cardiovascular complaints Respiratory: Respiratory: Reports no additional respiratory complaints and Reports no additional respiratory complaints Gastrointestinal: Gastrointestinal: Reports as per HPI and Reports no additional gastrointestinal complaints Musculoskeletal: Musculoskeletal: Reports no additional musculoskeletal complaints Integumentary/Breasts: Skin/Breast: Reports system reviewed and no additional complaints, except as docu and Reports as per HPI Neurologic: Reports system reviewed and no additional complaints, except as documented, Reports as per HPI and Reports Sensory deficit (Neuro) (Left hand neuropathy, chronic) Psychiatric: Psychiatric: Reports no additional psychiatric complaints and Reports as per HPI Endocrine: Endocrine: Reports no additional endocrine complaints Hematologic/Lymphatic: Hematologic/Lymphatic: Reports no additional hematologic/lymphatic complaints Allergic/Immunologic: Allergic/Immunologic: Reports no additional allergic/immunologic complaints Exam Narrative: Patient is laying in bed Const: General: cooperative, healthy appearing, comfortable, no acute distress, well developed, alert, awake, Physically active and ill appearing chronically Nutritional Appearance: average body habitus and overweight Orientation/consciousness: oriented to person, oriented to place, oriented to time and patient oriented x3 Limitations: no limitations HENMT: Head: normal to inspection, No palpable skull fracture present, normocephalic and atraumatic Ears: hearing grossly normal bilaterally, external ears normal and hearing grossly impaired (She stated she left her hearing aids at home.) bilaterally General nose exam: Normal external nose present Face and sinus: normal facial exam Eyes: General: appearance normal, both eyes and all related structures Alignment and Position: alignment normal Periorbital: periorbital findings normal Eyelids: eyelids normal Conjunctivae: conjunctivae normal Sclera: sclerae normal Cornea: corneas normal Pupils: Equal, round and reactive pupils present EOM: EOMs intact bilaterally Neck: Neck: normal visual in
== END 2021-04-28 16:45 | disposition home or self-care (01) | DRG 392 ==
LOC: ANHIMU 04-24 02:09 → ANH3MEDSUR 04-26 08:07 → ANHIMU 04-30 11:15
PROVIDERS: Internal Medicine Critical Care Medicine; Internal Medicine Gastroenterology; Nurse Practitioner; Admitting Provider Internal Medicine; PCP Family Medicine; Visit Provider Internal Medicine
PROC: 0DJ08ZZ Inspection of Upper Intestinal Tract, Via Natural or Artificial Opening Endoscopic (ICD-10-PCS; CPT 43235; principal; 2021-04-26 15:00)
DX: K52.9 Noninfective gastroenteritis and colitis, unspecified (principal); I50.32 Chronic diastolic (congestive) heart failure; J96.11 Chronic respiratory failure with hypoxia; I27.20 Pulmonary hypertension, unspecified; D50.0 Iron deficiency anemia secondary to blood loss (chronic); K29.70 Gastritis, unspecified, without bleeding; K21.9 Gastro-esophageal reflux disease without esophagitis; K44.9 Diaphragmatic hernia without obstruction or gangrene; K57.30 Diverticulosis of large intestine without perforation or abscess without bleeding; K64.4 Residual hemorrhoidal skin tags; I65.29 Occlusion and stenosis of unspecified carotid artery; E78.5 Hyperlipidemia, unspecified; E11.9 Type 2 diabetes mellitus without complications; I11.0 Hypertensive heart disease with heart failure; F32.A Depression, unspecified; M79.7 Fibromyalgia; I25.10 Atherosclerotic heart disease of native coronary artery without angina pectoris; I25.2 Old myocardial infarction; I35.0 Nonrheumatic aortic (valve) stenosis; R77.8 Other specified abnormalities of plasma proteins; F41.9 Anxiety disorder, unspecified; I48.91 Unspecified atrial fibrillation; J44.9 Chronic obstructive pulmonary disease, unspecified; Z79.4 Long term (current) use of insulin; Z79.899 Other long term (current) drug therapy; Z86.711 Personal history of pulmonary embolism; Z87.891 Personal history of nicotine dependence; Z98.42 Cataract extraction status, left eye; Z98.41 Cataract extraction status, right eye; Z99.81 Dependence on supplemental oxygen
CPT/HCPCS: 36415; 80048; 80053; 81001; 82274; 82948; 83036; 83605; 83735; 84100; 84484; 85014; 85018; 85025; 85027; 86850; 86900; 86901; 88305; 93005; A9270; C9113; J0290; J1580; J1815; J2704; J7120